=== PATIENT | male | born 1970 | race Caucasian/White ===

== ENCOUNTER 2019-09-11 13:27 | Emergency (ER) | payer OTHER ==
[2019-09-11 13:36] VITALS: BMI 26.9
--- NOTE | 2019-09-11 13:39 | PDOC ---
Rapid Medical Evaluation Chief Complaint: Pain Time Seen by Provider: 09/11/19 13:33 Medical Evaluation: Allergies Allergy/AdvReac Type Severity Reaction Status Date / Time Penicillins Allergy Verified 08/16/14 09:56 09/11/19 13:33 49 YEAR OLD MALE With severe LLQ abdominal pain / left testicular pain since 10 am. denies NVD, flank pain, urinary symptoms A; abdominal pain P; cbc cmp lipase ua ucx scrotal US Discharge Disposition - Diagnosis Left lower quadrant abdominal pain, Testicular pain, left - Referrals - Patient Instructions - Post Discharge Activity
--- NOTE | 2019-09-11 14:38 | PDOC ---
History of Present Illness - General Chief Complaint: Pain Stated Complaint: ABD PAIN Time Seen by Provider: 09/11/19 13:33 History Source: Patient Exam Limitations: No Limitations - History of Present Illness Initial Comments: 09/11/19 14:37 HPI: 49 yo M pmh renal colic presenting with severe LLQ abdominal pain / left testicular pain since 9 am. Pain is described as constant, progressive, non- radiating, LLQ. Cannot describe the quality. Patient has had normal BM and urination since the onset of symptoms. Never had any pain quite like this before. Says it is different than his kidney stone pain, never had any flank pain today. Denies fevers, chills, nausea, vomiting, diarrhea, flank pain, urinary symptoms. No trauma, increased exercises, bumps / bulges in the area. All: PCNs - unknown reaction Meds: Denies PMH: Kidney Stones PSH: Denies SHx: "Some alcohol" otherwise denies tocxic habits Past History - Travel Traveled outside of the country in the last 30 days: No Close contact w/someone who was outside of country & ill: No - Past Medical History Allergies/Adverse Reactions: Allergies Allergy/AdvReac Type Severity Reaction Status Date / Time Penicillins Allergy Verified 08/16/14 09:56 Home Medications: Ambulatory Orders NK [No Known Home Medication] 08/16/14 Tamsulosin HCl [Flomax] 0.4 mg PO DAILY #30 cap.er.24h 09/11/19 COPD: No Disorders: Yes (H/O KIDNEY STONES) - Psycho Social/Smoking Cessation Hx Smoking History: Never smoked Have you smoked in the past 12 months: No Number of Cigarettes Smoked Daily: 0 Information on smoking cessation initiated: No Hx Alcohol Use: No Drug/Substance Use Hx: No Review of Systems - Review of Systems Able to Perform ROS?: Yes Is the patient limited Fijian proficient: Yes Constitutional: No: Chills, Diaphoresis, Fever HEENTM: No: Nose Congestion, Throat Pain Respiratory: No: Cough, Shortness of Breath, Productive cough Cardiac (ROS): No: Chest Pain, Irregular Heart Rate, Lightheadedness, Palpitations, Syncope, Chest Tightness ABD/GI: No: Constipated, Diarrhea, Nausea, Poor Appetite, Poor Fluid Intake, Vomiting : No: Burning, Dysuria, Frequency, Hematuria Musculoskeletal: No: Muscle Pain, Muscle Weakness Integumentary: No: Pruritus, Rash Neurological: No: Headache, Numbness, Tingling, Weakness Psychiatric: No: Stressors, Change in Appetite Endocrine: No: Increased Thirst, Increased Urine Hematologic/Lymphatic: No: Anemia, Blood Clots, Easy Bleeding All Other Systems: Reviewed and Negative *Physical Exam - Vital Signs Last Vital Signs Temp Pulse Resp BP Pulse Ox 97.8 F 67 18 171/113 H 99 09/11/19 13:32 09/11/19 13:32 09/11/19 13:32 09/11/19 13:32 09/11/19 13:32 - Physical Exam 09/11/19 15:40 Vitals reviewed, AFVSS GEN: Well appearing, appears stated age, NAD, comfortable. AAOx3. HEENT: NCAT, EOMI, PERRL. Sclera anicteric, noninjected. No facial asymmetry. Moist mucous membranes. Normal voice. Trachea midline. CV: RRR, S1/S2, no murmurs / rubs / gallops appreciated. LUNG: CTAB, normal work of breathing. No wheezes, rales, rhonchi. No cough. Speaking full sentences. GI: Soft, NTND, +BS, no guarding, no rebound. No masses. Neg CVAT b/l. EXTREMITIES: 2+ distal pulses. No LE edema. No obvious deformities of all extremities. SKIN: Warm, dry, no rashes appreciated, non-jaundiced. PSYCH: Normal mood and affect. Cooperative and appropriate. NEURO: CN grossly intact. Moving all extremities well. Normal strength and sensation grossly. ED Treatment Course - LABORATORY CBC & Chemistry Diagram: 09/11/19 15:00 09/11/19 15:00 Medical Decision Making - Medical Decision Making 09/11/19 14:38 49 yo M pmh renal colic presenting with severe LLQ abdominal pain / left testicular pain since 9 am. DDX: Ureterolithiasis, diverticulitis, colitis, atypical appendicitis. - CBC, CMP, Lipase - UA, UCx - Scrotal US - Tylenol - IVF - Pepcid 09/11/19 15:42 - Leukocytosis 16.5 - H&H elevated, Plts wnl - making hemoconcentration less likely 09/11/19 16:06 - CTAP Ordered 09/11/19 17:31 - CT with left non-obstructing 0.5cm stone Dispo: Home -RX for flomax and percocet Discharge - Discharge Information Problems reviewed: Yes Clinical Impression/Diagnosis: Left lower quadrant abdominal pain, Ureterolithiasis Condition: Improved Disposition: HOME - Admission No - Additional Discharge Information Prescriptions: Tamsulosin HCl [Flomax] 0.4 mg PO DAILY #30 cap.er.24h - Follow up/Referral - Patient Discharge Instructions Patient Printed Discharge Instructions: DI for Kidney Stones Additional Instructions: You were seen and evaluated for abdominal pain and were found to have a kidney stone. Two prescriptions were sent to your pharmacy - Flomax for 30 days and Percocet for breakthrough pain. Take Motrin for your pain (600mg every 6 hours) and only take the percocet if the pain is unbearable. Do not take Tylenol while taking percocet to avoid overdose. Drink lots of water as this can help you pass your stone and can help prevent stones from forming in the future. Follow up with your personal urologist first thing on Saturday for continued evaluation and care. Return to the ED for any new or concerning symptoms which include but are not limited to: pain with urination, fevers / chills, nausea or vomiting that prevent you from taking your medications. - Post Discharge Activity
[2019-09-11] MEDS ORDERED: ACETAMINOPHEN 1000 MG/100 ML VIAL (NON FORMULARY) IVPB ONE (15:14)
[2019-09-11] MEDS ORDERED: SODIUM CHLORIDE 0.9% 500 ML INFUS.BAG IV ONE (15:14)
[2019-09-11] MEDS ORDERED: FAMOTIDINE 20 MG/50 ML IVPB 20 MG/50 ML MG IVPB ONE (15:16)
[2019-09-11] MEDS ORDERED: ACETAMINOPHEN INJECTION 100 ML IVPB ONE (15:16)
[2019-09-11 15:23] LABS: BASO % 0.6 % (0-2.0); EOS % 0.3 % (0-4.5); HEMATOCRIT 54.2 % (35.4-49); HEMOGLOBIN 18.1 GM/dL (11.7-16.9); LYMPH % 7.8 % (8-40); MCH 30.2 pg (25.7-33.7); MCHC 33.5 g/dl (32.0-35.9); MEAN CELL VOLUME 90.3 fl (80-96); MEAN PLT VOLUME 7.9 fl (7.5-11.1); MONO % 6.2 % (3.8-10.2); NEUT % 85.1 % (42.8-82.8); PLATELET COUNT 309 K/MM3 (134-434); RDW 13.8 % (11.9-15.9); WHITE BLOOD COUNT 16.5 K/mm3 (4.0-10.0)
[2019-09-11 16:02] LABS: ALBUMIN 4.5 g/dl (3.4-5.0); BILIRUBIN,TOTAL 1.2 mg/dL (0.2-1); BLOOD UREA NITROGEN 15.5 mg/dL (7-18); CALCIUM 9.9 mg/dL (8.5-10.1); CREATININE 1.4 mg/dL (0.55-1.3); POTASSIUM 4.4 mmol/L (3.5-5.1); TOT PROT 8.2 g/dl (6.4-8.2)
--- NOTE | 2019-09-11 16:08 | PDOC ---
Documentation entered by Carolina Washington SCRIBE, acting as scribe for Helder Ramirez MD. Helder Ramirez MD: This documentation has been prepared by the Padmini calloway Nirvannie, SCRIBE, under my direction and personally reviewed by me in its entirety. I confirm that the documentation accurately reflects all work, treatment, procedures, and medical decision making performed by me. Attending Attestation - Resident Resident Name: EvangelistaDick - ED Attending Attestation I have performed the following: I have examined & evaluated the patient, The case was reviewed & discussed with the resident, I agree w/resident's findings & plan, Exceptions are as noted - HPI HPI: 09/11/19 15:44 The patient is a 49 year old male, with a significant past medical history of renal colic, who presents to the emergency department with 1 day of LLQ abdominal pain with radiation to the left testicle. As per patient, his symptoms onset at 9am as a constant pain He denies any recent dysuria, frequency, urgency or hematuria. Allergies: Penicillins - Physicial Exam PE: 09/11/19 16:06 GENERAL: The patient is awake, alert, and fully oriented, Nontoxic - in no acute distress. ABDOMEN: Soft, nontender, No guarding, no rebound. No CVA tenderness - Medical Decision Making 09/11/19 16:04 49y hx of kidney stones presents with sudden onset LLQ pain this morning without associated fever/chills, n/v, hematuria, dysuria, frequency. Pt with hx of kidney stones but denies feeling this type of pain. She denies any other symptoms including chest pain, shortness of breath, dizziness, palpitations. a/p - Suspect kidney stones Will obtain UA, blood work Patient's blood work noted for a leukocytosis to 18, He also does have an elevated hemoglobin may be secondary to hemoconcentration. Patient was hydrated. Will obtain CT of the abdomen, awaiting urinalysis 09/11/19 17:49 labs reviewed pain resulved CT reviewed, noted for 5mm stone. No signs of pyelonephritis or stranding awaiting UA to ru UTI 09/11/19 18:40 No signs of UTI on the patient's UA, the patient will be discharged with outpatient follow-up with urology for further management of the kidney stone. Return precautions were discussed
[2019-09-11 18:52] LABS: EPI CELLS 0.5 /HPF (0-5/HPF); HYALINE CASTS 1 /lpf (0-8); URINE APPEARANCE CLEAR; URINE BACTERIA 4.1 /hpf (NEGATIVE); URINE BILIRUBIN NEGATIVE (NEGATIVE); URINE COLOR YELLOW; URINE GLUCOSE (UA) NEGATIVE (NEGATIVE); URINE KETONE 1+ (NEGATIVE); URINE LEUK ESTERASE NEGATIVE (NEGATIVE); URINE NITRITE NEGATIVE (NEGATIVE); URINE PROTEIN NEGATIVE (NEGATIVE); URINE RBC 9 /hpf (0-4); URINE UROBILINOGEN 0.2 mg/dL (0.2-1.0); URINE WBC 2 /hpf (0-5)
[2019-09-11 19:28] VITALS: BP 160/98; PULSE 70; TEMP 98
== END 2019-09-11 19:29 | disposition home or self-care (01) ==
LOC: JER 13:27
PROC: 3E033NZ Introduction of Analgesics, Hypnotics, Sedatives into Peripheral Vein, Percutaneous Approach (ICD-10-PCS; principal; 2019-09-11)
PROC: 3E033GC Introduction of Other Therapeutic Substance into Peripheral Vein, Percutaneous Approach (ICD-10-PCS; 2019-09-11)
DX: N20.1 Calculus of ureter (principal); R10.32 Left lower quadrant pain; Z88.0 Allergy status to penicillin
CPT/HCPCS: 36415; 74176-TC; 76870-TC; 80053; 81003; 83690; 85025; 87086; 96365; 96375; 99282-25; J0131